=== PATIENT | female | born 1990 | race Caucasian/White ===

== ENCOUNTER 2021-07-03 11:42 | Inpatient (IN) ==
[2021-07-03 08:58] LABS: Basophils % 0.4 %; Eosinophils # 0.1 K/mcL (0.0-0.6); Eosinophils % 0.7 %; Hematocrit 35.4 % (35.3-44.9); Hemoglobin 11.9 g/dL (11.5-15.4); Immature Granulocytes % 0.4 % (0-4); Lymphocytes # 1.8 K/mcL (0.6-4.6); Lymphocytes % 17.5 %; Mean Corpuscular HGB Conc 33.6 g/dL (31.6-35.5); Mean Corpuscular Hemoglobin 29.7 pg (28.0-33.3); Mean Corpuscular Volume 88.3 fL (83.0-100.0); Mean Platelet Volume 10.3 fL (9.4-12.4); Monocytes # 0.5 K/mcL (0.0-1.3); Monocytes % 4.9 %; Platelet Count 269 K/mcL (140-400); Red Blood Count 4.01 M/mcL (3.82-4.97); Red Cell Distribution Width 13.4 % (11.5-14.5); Segmented Neutrophils % 76.1 %; White Blood Count 10.5 K/mcL (4.3-11.1)
[2021-07-03 09:39] LABS: Influenza A PCR Negative (Negative); Influenza B PCR Negative (Negative); Resp. Syncytial Virus PCR Negative (Negative)
[2021-07-03 10:49] LABS: SARS-CoV-2 by PCR (In House) Negative (Negative)
[~2021-07-03 11:42] MED LIST: *HR* Nalbuphine 10 MG/ML AMPUL IV PRN; Azithromycin 500 MG in 0.9 % Sodium Chloride 250 ML IVPB PRN; EPHEDrine 50 MG/ML VIAL IVP PRN; Epidural Premix (fent/bupiv) 110 ML EP SCH; Famotidine 20 MG/2 ML VIAL IVP PRN; Metoclopramide 10 MG/2 ML VIAL IVP PRN; Naloxone 0.4 MG/ML INJ IVP PRN; Ondansetron 4 MG/2 ML VIAL IVP PRN; Oxytocin 30 UNIT/503 ML BAG IVC SCH; Ringers Solution, Lactated 1,000 ML IVC SCH
[2021-07-03 13:10] LABS: Amphetamine Screen,Urine Negative ng/mL (Cutoff=1000); Barbiturate Screen,Urine Negative ng/mL (Cutoff=200); Benzodiazepines Screen,Urine Negative ng/mL (Cutoff=200); Cannabinoid Screen,Urine Negative ng/mL (Cutoff = 50); Cocaine Screen,Urine Negative ng/mL (Cutoff= 300); Opiate Screen,Urine Negative ng/mL (Cutoff=300); Phencyclidine Screen,Urine Negative ng/mL (Cutoff=25)
[2021-07-03] MEDS ORDERED: Benzocaine/Menthol 56 GM AEROSOL SPRAY TP PRN (15:25)
[2021-07-03] MEDS ORDERED: OXYTOCIN/RINGERS LACTATE 10 UNIT/166.6 ML BAG IVC ONE (15:25)
[2021-07-03] MEDS ORDERED: Lanolin 7 G OINT...G. TP PRN (15:25)
[2021-07-03] MEDS ORDERED: Ondansetron ODT 4 MG TAB.RAPDIS SL PRN (15:25)
[2021-07-03] MEDS ORDERED: Oxytocin 30 UNIT/503 ML BAG IVC SCH (15:25)
[2021-07-03] MEDS: Ibuprofen 600 MG TABLET PO SCH (20:26)
[2021-07-03] MEDS: Acetaminophen 325 MG TABLET PO SCH (20:27)
[2021-07-04] MEDS: Ibuprofen 600 MG TABLET PO SCH ×3 (05:52→19:50)
[2021-07-04] MEDS: Acetaminophen 325 MG TABLET PO SCH ×3 (05:52→19:50)
[2021-07-04] MEDS: Prenatal Vit/FA 1 EACH TABLET PO SCH (08:36)
[2021-07-04 20:42] VITALS: O2SAT 97
[2021-07-05] MEDS: Ibuprofen 600 MG TABLET PO SCH ×2 (02:15→08:42)
[2021-07-05] MEDS: Acetaminophen 325 MG TABLET PO SCH ×2 (02:15→08:42)
[2021-07-05 06:44] VITALS: BP 109/65; PULSE 55; TEMP 98
[2021-07-05] MEDS: Prenatal Vit/FA 1 EACH TABLET PO SCH (08:42)
== END 2021-07-05 14:03 | disposition home or self-care (01) | DRG 560 ==
LOC: 1NENULAB → 1NENUOBS 15:03
PROVIDERS: ADMIT Registered Nurse; ATTEND Registered Nurse